=== PATIENT | female | born 1960 | race Caucasian/White ===

== ENCOUNTER 2016-12-07 21:52 | Emergency (ER) | payer MEDICAID, OTHER ==
[~2016-12-07] VITALS: Ht 162.6 cm; Wt 79.0 kg
[~2016-12-07 21:52] MED LIST: DIAZ-90 PO; HYDR-762 PO
[2016-12-07 21:56] VITALS: Ht 162.6 cm; Wt 79.0 kg
[2016-12-08] MEDS ORDERED: HYDROCODONE/APAP (5/325) TAB PO ONE (00:30)
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
[2016-12-08] MEDS ORDERED: OXYCODONE/ACETAMINOPHEN (5/325) TAB PO ONE (01:30)
--- NOTE | 2016-12-08 02:11 | RADRPT ---
PROCEDURE: CT head, without contrast. CLINICAL INDICATION: Fall with loss of consciousness. TECHNIQUE: Noncontrast CT examination of the head, with axial, sagittal and coronal reformatted im ages. Automated dose exposure control was employed. CTDI: 43.58 and DLP: 810.25. COMPARISON: None. FINDINGS: No acute hemorrhage. Subarachnoid spaces are substantially preserved and symmetric. Ventricles ar e unremarkable. No mass effect. Moeller-white matter distinction is preserved without evident decreased attenuation t o suggest acute or recent infarct. Sinuses and osseous structures are unremarkable. IMPRESSION: No acute process in the head. RPTAT: [facility]U Physician Rose Date Time Electronically viewed and signed by Physician Rose on 12/08/2016 02:10 RS/
--- NOTE | 2016-12-08 02:15 | RADRPT ---
PROCEDURE: CT Cervical Spine. CLINICAL INDICATION: The patient is status post fall with head and neck injuries. TECHNIQUE: A CT of the cervical spine was performed utilizing thin section axial images from the skull base through the thoracic inlet. Axial, sagittal and coronal reformatted images were made. T sulaiman CTDIvol is 22.37 mGy and the DLP is 642.99 mGycm. COMPARISON: None. FINDINGS: Mild cervical straightening is seen, which may represent muscular spasm setting of trauma versus pat ient position during imaging. No vertebral body subluxation is seen. No fractures are evident. Th e posterior elements are normally aligned. The surrounding soft tissues are normal in appearance. The intervertebral discs are normal in height. No significant disk bulge or protrusion is seen. Th e central canal and foramina are adequately patent at all levels. Likely cardiomegaly with patchy air space disease and lung apices suggesting a degree of failure ambrose ana volume overload in setting of resuscitation. IMPRESSION: 1. Mild cervical straightening. 2. No acute fracture. 3. Question mild failure versus volume overload in setting of resuscitation. RPTAT: [facility] Physician Rose Date Time Electronically viewed and signed by Physician Rose on 12/08/2016 02:15 RS/
[2016-12-08 02:40] VITALS: BP 112/67; PULSE 65; RESP 16
== END 2016-12-08 02:41 | disposition home or self-care (01) ==
LOC: FTE 21:52
DX: S06.9X1A Unspecified intracranial injury with loss of consciousness of 30 minutes or less, initial encounter (principal); S00.83XA Contusion of other part of head, initial encounter; S13.9XXA Sprain of joints and ligaments of unspecified parts of neck, initial encounter; W18.2XXA Fall in (into) shower or empty bathtub, initial encounter; Y92.9 Unspecified place or not applicable
CPT/HCPCS: 70450; 72125; Z7502; Z7610

== ENCOUNTER 2018-10-18 14:47 | Emergency (ER) | payer SELFPAY ==
[~2018-10-18] VITALS: Ht 162.6 cm; Wt 85.1 kg
[~2018-10-18 14:47] MED LIST changes: -DIAZ-90 PO; +DIAZ5TAB PO
[2018-10-18 15:20] VITALS: BP 153/101; PULSE 106; RESP 20; Ht 162.6 cm; Wt 85.1 kg
== END 2018-10-18 16:38 | disposition left against medical advice (07) ==
LOC: FTE 14:47
DX: Z53.21 Procedure and treatment not carried out due to patient leaving prior to being seen by health care provider (principal)

== ENCOUNTER 2018-12-11 01:31 | Emergency (ER) | payer OTHER ==
[~2018-12-11] VITALS: Ht 162.6 cm; Wt 88.7 kg
[2018-12-11 01:40] VITALS: BP 133/77; PULSE 75; RESP 18; Ht 162.6 cm; Wt 88.7 kg
[2018-12-11] MEDS ORDERED: KETOROLAC 30 MG INJ IM STA (03:09)
[2018-12-11] MEDS ORDERED: HYDROmorphONE 0.5 MG/0.5 ML SYG IM STA (03:09)
[2018-12-11] MEDS ORDERED: PRED20TA PO (03:42)
[2018-12-11] MEDS ORDERED: IBUP-1542 PO (03:42)
[2018-12-11] MEDS ORDERED: HYDR-4011 PO (03:42)
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
== END 2018-12-11 04:14 | disposition home or self-care (01) ==
LOC: FTE 01:31
DX: M54.12 Radiculopathy, cervical region (principal)
CPT/HCPCS: 96372; J1170; J1885; Z7502